=== PATIENT | female | born 1950 | race Hispanic/Latino ===

== ENCOUNTER → 2018-03-10 | Outpatient (CLI) | payer OTHER ==
[~2018-03-10] MED LIST: CEFU500T67 PO
== END | disposition home or self-care (01) ==
LOC: RAH 12:33
PROVIDERS: ATTEND Internal Medicine
DX: N20.0 Calculus of kidney (principal); N23 Unspecified renal colic; M54.5 Low back pain
CPT/HCPCS: 76770

== ENCOUNTER → 2018-09-20 | Outpatient (CLI) | payer OTHER, MEDICARE | END | disposition home or self-care (01) | LOC: RAH 14:34 | PROVIDERS: ATTEND Urology | DX: N20.0 Calculus of kidney (principal) | CPT/HCPCS: 74018; 76100 ==

== ENCOUNTER → 2019-03-07 | Outpatient (CLI) | payer OTHER | END | disposition home or self-care (01) | LOC: RAH 13:55 | PROVIDERS: ATTEND Internal Medicine | DX: Z12.31 Encounter for screening mammogram for malignant neoplasm of breast (principal) | CPT/HCPCS: 77067 ==

== ENCOUNTER → 2019-08-28 | Outpatient (CLI) | payer OTHER | END | disposition home or self-care (01) | LOC: RAH 12:32 | PROVIDERS: ATTEND Internal Medicine | DX: M25.562 Pain in left knee (principal) | CPT/HCPCS: 73562 ==

== ENCOUNTER → 2020-04-14 | Outpatient (CLI) | payer OTHER | END | disposition home or self-care (01) | LOC: RAH 13:37 | PROVIDERS: ATTEND Internal Medicine | DX: N20.2 Calculus of kidney with calculus of ureter (principal); N20.0 Calculus of kidney; N28.1 Cyst of kidney, acquired ==

== ENCOUNTER → 2021-02-10 | Outpatient (CLI) | payer OTHER | END | disposition home or self-care (01) | LOC: RAH 11:29 | PROVIDERS: ATTEND Internal Medicine | DX: Z12.31 Encounter for screening mammogram for malignant neoplasm of breast (principal) | CPT/HCPCS: 77067 ==

== ENCOUNTER → 2021-12-14 | Outpatient (CLI) | payer OTHER | END | disposition home or self-care (01) | LOC: RAH 13:10 | PROVIDERS: ATTEND Urology | DX: N20.0 Calculus of kidney (principal); N28.1 Cyst of kidney, acquired; K44.9 Diaphragmatic hernia without obstruction or gangrene; Z90.49 Acquired absence of other specified parts of digestive tract | CPT/HCPCS: 74018; 74176; 76100 ==

== ENCOUNTER 2022-02-23 05:33 | Day surgery (SDC) | payer OTHER ==
[2022-02-22 13:56] LABS: HEMATOCRIT 41.3 % (36-48); MEAN CORPUSCULAR HEMOGLOBIN 29.5 pg (27.0-33.0); MEAN CORPUSCULAR HGB CONC 31.5 g/dL (32.0-36.0); MEAN CORPUSCULAR VOLUME 93.7 fL (79-99); RED BLOOD CELL COUNT(AUTO) 4.41 MIL/uL (4.00-5.50); WHITE BLOOD COUNT (AUTO) 6.4 K/uL (4.8-10.8)
[2022-02-22 14:01] LABS: APPEARANCE,URINE Cloudy (CLEAR); BILIRUBIN,URINE Negative (NEGATIVE); COLOR,URINE Yellow (YELLOW); GLUCOSE, URINE (UA) Negative (NEGATIVE); KETONES,URINE Trace mg/dL (NEGATIVE); LEUKOCYTE ESTERASE ,URINE Trace (NEGATIVE); NITRATE,URINE Negative (NEGATIVE); OCCULT BLOOD,URINE Negative (NEGATIVE); PH,URINE 5.5 (5.0-8.0); PROTEIN,URINE Negative (NEGATIVE); UROBILINOGEN,URINE 0.2 mg/dL (0.2-1.0)
[2022-02-22 14:07] LABS: BACTERIA,URINE Rare /HPF (None Seen); RBC,URINE 0-1 /HPF (0-1); SQUAMOUS EPITHELIAL CELL,UR Few /HPF (0-2)
[2022-02-22 14:08] LABS: ALBUMIN 3.6 g/dL (3.5-5.0); BILIRUBIN,TOTAL 0.4 mg/dL (0.2-1.0); CREATININE 0.9 mg/dL (0.5-1.5); INR 1.01 (0.85-1.15); POTASSIUM 4.5 mmol/L (3.5-5.1); TOTAL PROTEIN, SERUM 7.4 g/dL (6.0-8.3)
[2022-02-22 14:10] LABS: PARTIAL THROMBOPLASTIN TIME 25.3 SEC (26.3-35.5)
[2022-02-22 16:50] VITALS: BP 123/64
[2022-02-23] VITALS (21 sets, daily range): BP systolic 98–119; BP diastolic 43–67
[~2022-02-23] VITALS: Ht 129.5 cm; Wt 69.0 kg
[~2022-02-23 05:33] MED LIST changes: +ATOR10TA69 PO; +CALC1CAP26 PO; -CEFU500T67 PO; +CHOL100040 PO; +LOSA100T58 PO; +MAGN400T40 PO
[2022-02-23] MEDS: LACTATED RINGERS 1000ML 1,000 ML IV SCH ×3 (05:58→07:35)
[2022-02-23] MEDS ORDERED: CEFAZOLIN SODIUM 1 GM VIAL IVP SCH (06:00)
[2022-02-23] MEDS ORDERED: LIDOCAINE PF 100MG/5ML (2%) SYRINGE 5ML ONE (06:17)
[2022-02-23] MEDS ORDERED: FENTANYL CITRATE PF 50 MCG/1 ML 2ML VIAL ONE ×2 (06:18→07:28)
[2022-02-23] MEDS ORDERED: ROCURONIUM 10MG/1ML SYR 10 MG/ML ML ONE (06:18)
[2022-02-23] MEDS ORDERED: MIDAZOLAM HCL 1 MG/ML 2ML VIAL ONE (06:18)
[2022-02-23] MEDS ORDERED: PROPOFOL 10 MG/ML 20ML VIAL IV ONE (06:18)
[2022-02-23] MEDS ORDERED: ONDANSETRON 4MG INJ ONE (06:25)
[2022-02-23] MEDS ORDERED: CEFAZOLIN SODIUM 2 GM VIAL IV ONE (06:38)
[2022-02-23] MEDS ORDERED: PHENYLEPHRINE HCL 10 MG/ML 1ML VIAL IV ONE ×2 (06:40→06:42)
[2022-02-23] MEDS ORDERED: GLYCOPYRROLATE 1 MG/5 ML SYRINGE ONE (07:27)
[2022-02-23] MEDS ORDERED: NEOSTIGMINE 5MG/5ML SYR IV ONE (07:27)
== END 2022-02-23 10:40 | disposition home or self-care (01) ==
LOC: DAH 05:33
PROVIDERS: ATTEND Urology
DX: N20.0 Calculus of kidney (principal); I10 Essential (primary) hypertension; K21.9 Gastro-esophageal reflux disease without esophagitis; N39.0 Urinary tract infection, site not specified; E21.3 Hyperparathyroidism, unspecified; Z79.899 Other long term (current) drug therapy; Z79.82 Long term (current) use of aspirin; Z98.890 Other specified postprocedural states; Z98.891 History of uterine scar from previous surgery; Z90.89 Acquired absence of other organs; Z98.49 Cataract extraction status, unspecified eye; Z90.49 Acquired absence of other specified parts of digestive tract; Z79.01 Long term (current) use of anticoagulants
CPT/HCPCS: 36415; 50590; 71046; 74018; 80053; 81001; 85027; 85610; 85730; 87088; 87635; 93005; A4215; A4221; A4222; A4223; A4663; C9803; J0690 ×3; J2001; J2250; J2370 ×2; J2405; J2704; J2710; J3010 ×2; J3490; J7120

== ENCOUNTER → 2022-03-19 | Outpatient (CLI) | payer OTHER | END | disposition home or self-care (01) | LOC: RAH 14:56 | PROVIDERS: ATTEND Urology | DX: N20.0 Calculus of kidney (principal) | CPT/HCPCS: 74018; 76100 ==

== ENCOUNTER → 2022-04-19 | Outpatient (CLI) | payer OTHER | END | disposition home or self-care (01) | LOC: RAH 14:06 | PROVIDERS: ATTEND Internal Medicine | DX: M25.561 Pain in right knee (principal); M25.562 Pain in left knee ==

== ENCOUNTER → 2022-05-04 | Outpatient (CLI) | payer OTHER | END | disposition home or self-care (01) | LOC: RAH 08:57 | PROVIDERS: ATTEND Internal Medicine | DX: I83.93 Asymptomatic varicose veins of bilateral lower extremities (principal); I87.8 Other specified disorders of veins; R60.9 Edema, unspecified | CPT/HCPCS: 93971 ==

== ENCOUNTER → 2022-08-04 | Outpatient (CLI) | payer OTHER | END | disposition home or self-care (01) | LOC: RAH 13:55 | PROVIDERS: ATTEND Internal Medicine | DX: Z12.31 Encounter for screening mammogram for malignant neoplasm of breast (principal) | CPT/HCPCS: 77067 ==

== ENCOUNTER 2022-10-18 09:32 | Emergency (ER) | payer OTHER ==
[~2022-10-18] VITALS: Ht 162.6 cm; Wt 68.9 kg
[2022-10-18 09:39] VITALS: BP 136/70
[2022-10-18] MEDS ORDERED: KETOROLAC 30MG VIAL (30MG/ML) IM ONE (12:30)
[2022-10-18] MEDS ORDERED: TRAM50TA4 PO (13:08)
[2022-10-18] MEDS ORDERED: DICL20GE TP (13:08)
== END 2022-10-18 13:46 | disposition home or self-care (01) ==
LOC: EDH 09:32
DX: M25.562 Pain in left knee (principal); E78.00 Pure hypercholesterolemia, unspecified; M79.662 Pain in left lower leg; Z79.899 Other long term (current) drug therapy; Z87.442 Personal history of urinary calculi; Z90.49 Acquired absence of other specified parts of digestive tract
CPT/HCPCS: 99284; 73562; 93971; 96372; J1885

== ENCOUNTER → 2022-12-10 | Outpatient (CLI) | payer OTHER ==
[~2022-12-10] MED LIST changes: +DICL20GE TP; +TRAM50TA4 PO
== END | disposition home or self-care (01) ==
LOC: RAH 14:19
DX: M17.12 Unilateral primary osteoarthritis, left knee (principal); M25.562 Pain in left knee
CPT/HCPCS: 73721

== ENCOUNTER → 2025-01-15 | Outpatient (CLI) | payer MEDICARE ==
[~2025-01-15] MED LIST changes: -LOSA100T58 PO; +LOSA100T59 PO
--- NOTE | 2025-01-15 15:15 | HMCIMG ---
BONE DENSITOMETRY: HISTORY: Age-related osteoporosis without current pathological fracture Comparison: None FINDINGS: BMD measured at AP spine L1-L4 is 0.456 g/cm2 with a T-score of -4.6 This patient is considered osteoporotic according to WHO criteria. Fracture risk is high. BMD measured at Left Femoral Neck is 0.524 g/cm2 with a T-score of -3.0 This patient is considered osteoporotic according to WHO criteria. Fracture risk is high. BMD measured at Left Femoral Total is 0.638 g/cm2 with a T-score of -2.4 Bone density is between 10 and 25% below young normal. This patient is considered osteopenic. Fracture risk is moderate. IMPRESSION: Osteoporosis. High risk for atraumatic fractures. Treatment and follow-up recommended.
== END | disposition home or self-care (01) ==
LOC: RAH 14:14
PROVIDERS: ATTEND Internal Medicine
DX: M81.0 Age-related osteoporosis without current pathological fracture (principal); M85.852 Other specified disorders of bone density and structure, left thigh
CPT/HCPCS: 77080

== ENCOUNTER → 2025-06-24 | Outpatient (CLI) | payer OTHER ==
--- NOTE | 2025-06-25 09:34 | HMCIMG ---
EXAM: CR Abdomen (KUB), 1 view. CLINICAL HISTORY: Calculus of the kidney. COMPARISON: Same-day abdominal topogram FINDINGS: Surgical clips in the right upper quadrant are probably post-cholecystectomy surgical clips. Moderate amount of fecal residue in the large bowel loops. Probable causes of constipation. Nonobstructed nonspecific bowel gas pattern. No free air is evident. Tiny calcific foci in the left kidney upper pole, interpola, and lower polar lesion approximately 3-4 mm consistent with renal calculi. No calculus is appreciated in the right kidney. Tiny calcific foci inferior to the right sacroiliac joint are probably right ureteric calculi. No aggressive appearing osseous lesion. IMPRESSION: No acute process. Tiny calcific foci in the left kidney upper pole, interpolar, and lower polar lesion approximately 3-4 mm, consistent with renal calculi. No calculus is appreciated in the right kidney. Tiny calcific foci inferior to the right sacroiliac joint are probably right ureteric calculi. Moderate amount of fecal residue in the large bowel loops. Changes in constipation. /[place]
--- NOTE | 2025-06-25 09:35 | HMCIMG ---
EXAM: Tomogram of the abdomen, multiple views CLINICAL HISTORY: Calculus of the kidney. COMPARISON: Same day abdominal radiograph. FINDINGS: Surgical clips in the right upper quadrant probable post cholecystectomy surgical clips. No free air is evident. Tiny calcific foci in the left kidney upper pole interpolar and lower polar lesion approximately 3-4 mm consistent with renal calculi. No calculus is obviously appreciated in the right kidney. No aggressive appearing osseous lesion. IMPRESSION: No acute process. Tiny calcific foci in the left kidney upper pole interpolar and lower polar lesion approximately 3-4 mm consistent with renal calculi. No calculus is obviously appreciated in the right kidney. /[place]
== END | disposition home or self-care (01) ==
LOC: RAH 15:53
PROVIDERS: ATTEND Urology
DX: N20.0 Calculus of kidney (principal); K59.00 Constipation, unspecified
CPT/HCPCS: 74018; 76100

== ENCOUNTER → 2025-07-23 | Outpatient (CLI) | payer OTHER ==
--- NOTE | 2025-07-23 18:15 | HMCIMG ---
EXAM: CR left foot, 2 View. CLINICAL HISTORY: PAIN IN LEFT ANKLE AND JOINTS OF LEFT FOOT COMPARISON: None provided. FINDINGS: BONES: No acute fracture or aggressive appearing osseous lesion. JOINTS: The joint spaces appear within normal limits. No dislocation. SOFT TISSUES: Mild dorsal midfoot soft tissue edema. IMPRESSION: 1. No acute osseous injury. Mild dorsal midfoot soft tissue edema. /[place]
--- NOTE | 2025-07-24 05:30 | HMCIMG ---
EXAM: CR Left Ankle, 2 views. CLINICAL HISTORY: Pain. COMPARISON: None provided. FINDINGS: Generalized osteopenia is seen. No acute fracture or aggressive appearing osseous lesion. Joint spaces are within normal limits. No radiographic evidence of joint effusion. The soft tissues are unremarkable. IMPRESSION: No acute fracture or dislocation. Generalized osteopenia is seen. /[place]
== END | disposition home or self-care (01) ==
LOC: RAH 10:17
PROVIDERS: ATTEND Nurse Practitioner Family
DX: M85.872 Other specified disorders of bone density and structure, left ankle and foot (principal); M25.572 Pain in left ankle and joints of left foot; R60.1 Generalized edema
CPT/HCPCS: 73600; 73620

== ENCOUNTER → 2025-09-03 | Outpatient (CLI) | payer OTHER ==
--- NOTE | 2025-09-03 20:24 | HMCIMG ---
EXAM: RIGHT RIBS RADIOGRAPH, 4 VIEWS WITH CHEST Technique: Posteroanterior chest view with targeted right rib detail. Oblique projections were obtained Clinical Information: Rib pain after an unspecified fall, subsequent encounter. Comparison: None. Findings: The visualized osseous structures appear osteopenic. No acute right rib fracture, displacement, or focal periosteal reaction is identified. No focal lytic or sclerotic osseous lesion is seen. Costochondral junctions are visualized without acute calcific change or erosive abnormality; radiographs are limited for diagnosing costochondritis. The visualized lungs demonstrate peribronchial thickening bilaterally, compatible with chronic bronchitic-type change. No focal airspace consolidation is identified on the provided projections. No pleural effusion is seen. No pneumothorax is detected on this study. Cardiomediastinal contours are within expected limits for technique. Impression: * No acute right rib fracture or malalignment was identified; osteopenic bones, which can decrease radiographic sensitivity for subtle or nondisplaced fractures. Suggested CT chest for further evaluation. * Bronchitic-pattern peribronchial thickening in both lungs, which may reflect chronic bronchitis in the appropriate clinical context. * Clinical concern for costochondritis noted; radiographs are insensitive for costochondral inflammation and show no acute osseous or erosive change. /[place]
== END | disposition home or self-care (01) ==
LOC: RAH 13:46
PROVIDERS: ATTEND Nurse Practitioner Family
DX: J98.09 Other diseases of bronchus, not elsewhere classified (principal); R07.89 Other chest pain; W19.XXXD Unspecified fall, subsequent encounter
CPT/HCPCS: 71100

== ENCOUNTER → 2025-10-25 | Outpatient (CLI) | payer OTHER ==
--- NOTE | 2025-10-26 07:55 | HMCIMG ---
STUDY Ultrasound abdomen complete HISTORY Right upper quadrant pain; prior CT and ultrasound demonstrating small left lobe hepatic cyst; other specified diseases of the liver. TECHNIQUE Real-time grayscale ultrasound of the abdomen with Doppler assessment where indicated. COMPARISON Prior CT dated 12/14/2021 and prior abdominal ultrasound documenting a left lobe hepatic cyst measuring 11 x 6 x 10 mm; radiographic studies dated 06/24/2025 as provided. FINDINGS LIVER Liver measures approximately 14 cm in craniocaudal dimension with normal echotexture and smooth contour. No focal hepatic mass or intrahepatic biliary ductal dilatation is identified. Previously described small left lobe cyst measuring 11 x 6 x 10 mm on earlier imaging is not confidently redemonstrated as a discrete dominant lesion on the current study, and no new cystic or solid hepatic lesion is seen. GALLBLADDER AND BILIARY TREE Gallbladder is surgically absent. The common bile duct measures approximately 0.4 cm in diameter, within normal limits for post-cholecystectomy status, with no sonographic evidence of choledocholithiasis. PANCREAS Pancreas appears within normal limits in the segments visualized. No focal pancreatic mass or peripancreatic collection is identified, recognizing that portions may be partially obscured by bowel gas. KIDNEYS Right kidney measures approximately 10.8 x 4.5 x 3.7 cm with preserved cortical thickness and echotexture, without focal mass, hydronephrosis, or shadowing calculus. Left kidney measures approximately 9.5 x 4.4 x 3.3 cm with preserved contour; multiple intrarenal calculi are present, the largest measuring approximately 11 x 5 x 11 mm, without evidence of hydronephrosis to suggest current obstruction. SPLEEN Spleen measures approximately 8.6 x 2.8 x 2.9 cm, normal in size and echogenicity, without focal lesion. VASCULATURE Main portal vein demonstrates normal hepatopetal flow on Doppler evaluation. Inferior vena cava and visualized abdominal aorta appear normal in caliber without aneurysmal dilatation or intraluminal echogenic material. MISCELLANEOUS No free intraperitoneal fluid is identified in the visualized upper abdomen. IMPRESSION * Normal-sized liver with smooth contour and no focal hepatic mass or biliary dilatation; previously described small left lobe hepatic cyst is not conspicuous as a dominant lesion on the current ultrasound. * Status post cholecystectomy with normal common bile duct caliber at 0.4 cm and no sonographic evidence of choledocholithiasis. * Multiple nonobstructing left renal calculi, largest approximately 11 x 5 x 11 mm, without hydronephrosis; right kidney unremarkable. * Normal-appearing spleen, abdominal aorta, inferior vena cava, and portal venous flow. /[place]
== END | disposition home or self-care (01) ==
LOC: RAH 07:41
PROVIDERS: ATTEND Internal Medicine
DX: N20.0 Calculus of kidney (principal); K76.89 Other specified diseases of liver; R10.11 Right upper quadrant pain; Z90.49 Acquired absence of other specified parts of digestive tract
CPT/HCPCS: 76700